=== PATIENT | female | born 1945 | race Caucasian/White ===

== ENCOUNTER 2021-01-01 09:28 | Outpatient (CLI) | payer MEDICARE | END 2021-01-01 09:29 | disposition home or self-care (01) | LOC: MADRAD 09:28 | PROVIDERS: ATTEND Family Medicine | DX: M25.512 Pain in left shoulder (principal) ==

== ENCOUNTER 2021-02-12 15:47 | Emergency (ER) | payer OTHER, MEDICARE ==
[2021-02-12] MEDS ORDERED: Boostrix 0.5 ML (Tdap) VIAL ONE (18:10)
== END 2021-02-12 19:20 | disposition home or self-care (01) ==
LOC: MADERS 15:47
DX: S00.03XA Contusion of scalp, initial encounter (principal); M25.512 Pain in left shoulder; G89.29 Other chronic pain; W01.10XA Fall on same level from slipping, tripping and stumbling with subsequent striking against unspecified object, initial encounter
CPT/HCPCS: 70450; 72125; 90471; 90715

== ENCOUNTER 2021-08-02 18:01 | Emergency (ER) | payer MEDICARE ==
[~2021-08-02 18:01] MED LIST: Sodium Chloride 0.9% 100 ML BAG ONE
[2021-08-02 19:08] LABS: #Basophils 0.1 thou/uL (0.0-0.2); #Eosinphils 0.2 thou/uL (0.0-0.7); #Lymphocytes 1.5 thou/uL (1.20-3.40); #Monocytes 0.8 thou/uL (0.11-0.59); %Basophils 1.1 % (0.0-1.0); %Eosinophils 2.9 % (0.0-10.0); %Monocytes 10.2 % (0.0-10.0); %Neutrophils 65.9 % (42.0-75.0); Hemoglobin 15.2 g/dL (12.0-16.0); Mean Corpuscular HGB CONC 31.3 g/dL (32.0-36.0); Mean Corpuscular Hemoglobin 30.4 pg (27.0-31.0); Mean Corpuscular Volume 97.2 fL (78.0-98.0); Mean Platelet Volume 10.5 fL (7.4-10.4); Platelet Count 228 thou/uL (130-400); RBC Distribution Width 11.8 % (11.5-14.5); Red Blood Cell (RBC) Count 4.99 mill/uL (4.20-5.40); White Blood Cell (WBC) Count 7.6 thou/uL (4.8-10.8)
[2021-08-02 19:12] LABS: INR-International Normal Ratio 0.9; Prothrombin Time 12.1 sec (12.0-14.7)
[2021-08-02 19:22] LABS: ALT (SGPT) 10 U/L (8-55); AST (SGOT) 20 U/L (5-34); Albumin 4.3 g/dL (3.4-4.8); Alkaline Phosphatase 76 U/L (40-110); Anion Gap 16 mmol/L (10-20); BUN (Urea Nitrogen) 13 mg/dL (9.8-20.1); Bilirubin, Total 0.6 mg/dL (0.2-1.2); CK (CPK) 99 U/L (29-168); Calc. Creatinine Clearance 0 mL/min (70-130); Calcium 10.5 mg/dL (7.8-10.44); Carbon Dioxide 27 mmol/L (23-31); Chloride 101 mmol/L (98-107); Globulin 3.3 g/dL (2.4-3.5); Glucose 93 mg/dL (83-110); Potassium 3.4 mmol/L (3.5-5.1); Protein, Total 7.6 g/dL (5.8-8.1); Sodium 141 mmol/L (136-145)
[2021-08-02 19:29] LABS: Bilirubin Negative (Negative); Blood, Urine Small (Negative); Glucose, Urine (Dipstick) Negative (Negative); Ketone, Urine Trace mg/dL (Negative); Leukocyte Small (Negative); Nitrite Negative (Negative); Protein, Urine (Dipstick) Negative (Neg-Trace); Specific Gravity, Urine 1.015 (1.005-1.030)
[2021-08-02 19:34] LABS: Clarity Hazy (Clear)
[2021-08-02 19:35] LABS: RBC/HPF 0-3 HPF (0-3)
[2021-08-02 19:36] LABS: Bacteria/HPF Rare-Few HPF (None Seen); Squamous Epithelial 0-3 HPF (0-3)
[2021-08-02 19:40] LABS: CKMB 1.7 ng/mL (0-6.6)
[2021-08-02] MEDS ORDERED: cefTRIAXone\\ROCEPHIN 1 GM VIAL ONE (20:00)
[2021-08-02] MEDS ORDERED: Aspirin 325 MG TAB ONE (20:00)
[2021-08-02 21:25] LABS: Troponin I 0.015 ng/mL (< 0.028)
== END 2021-08-02 22:01 | disposition home or self-care (01) ==
LOC: MADERS 18:01
DX: N39.0 Urinary tract infection, site not specified (principal); R29.700 NIHSS score 0; R42 Dizziness and giddiness
CPT/HCPCS: 0042T; 70450; 70496; 70498; 80053; 81003; 81015; 82550; 82553; 84484; 85025; 85610; 85730; 93005; 94760; 96374; J0696; J3490

== ENCOUNTER 2021-08-04 14:14 | Outpatient (CLI) | payer MEDICARE | END 2021-08-04 14:15 | disposition home or self-care (01) | LOC: MADLAB 14:14 | PROVIDERS: ATTEND Family Medicine | DX: M17.11 Unilateral primary osteoarthritis, right knee (principal); E83.52 Hypercalcemia | CPT/HCPCS: 36415; 82310; 83970 ==

== ENCOUNTER 2021-08-20 01:58 | Emergency (ER) | payer MEDICARE ==
[2021-08-20 02:41] LABS: #Basophils 0.1 thou/uL (0.0-0.2); #Eosinphils 0.4 thou/uL (0.0-0.7); #Lymphocytes 1.7 thou/uL (1.20-3.40); #Monocytes 0.9 thou/uL (0.11-0.59); #Neutrophils 6.6 thou/uL (1.40-6.50); %Eosinophils 4.2 % (0.0-10.0); %Lymphocytes 17.8 % (21.0-51.0); %Monocytes 9.2 % (0.0-10.0); %Neutrophils 67.8 % (42.0-75.0); Hemoglobin 14.2 g/dL (12.0-16.0); Mean Corpuscular HGB CONC 31.8 g/dL (32.0-36.0); Mean Corpuscular Hemoglobin 30.7 pg (27.0-31.0); Mean Corpuscular Volume 96.4 fL (78.0-98.0); Mean Platelet Volume 10.7 fL (7.4-10.4); Platelet Count 234 thou/uL (130-400); RBC Distribution Width 12.1 % (11.5-14.5); Red Blood Cell (RBC) Count 4.63 mill/uL (4.20-5.40); White Blood Cell (WBC) Count 9.7 thou/uL (4.8-10.8)
[2021-08-20] MEDS ORDERED: ALPRAZolam 0.5 MG TAB ONE ×2 (02:41→02:42)
[2021-08-20 03:07] LABS: ALT (SGPT) 12 U/L (8-55); AST (SGOT) 19 U/L (5-34); Albumin 3.9 g/dL (3.4-4.8); Alkaline Phosphatase 85 U/L (40-110); Anion Gap 12 mmol/L (10-20); BUN (Urea Nitrogen) 18 mg/dL (9.8-20.1); Bilirubin, Total 0.3 mg/dL (0.2-1.2); Calc. Creatinine Clearance 0 mL/min (70-130); Calcium 9.5 mg/dL (7.8-10.44); Carbon Dioxide 28 mmol/L (23-31); Chloride 103 mmol/L (98-107); Globulin 2.4 g/dL (2.4-3.5); Glucose 110 mg/dL (83-110); Potassium 3.4 mmol/L (3.5-5.1); Protein, Total 6.3 g/dL (5.8-8.1); Sodium 140 mmol/L (136-145)
[2021-08-20] MEDS ORDERED: Sodium Chloride 0.9% 1,000 ML ONE (03:49)
[2021-08-20] MEDS ORDERED: Sodium Chloride 0.9% 100 ML BAG ONE (06:07)
[2021-08-20] MEDS ORDERED: Iopamidol 370 76% 125 ML VIAL FS ONE (12:04)
== END 2021-08-20 05:17 | disposition home or self-care (01) ==
LOC: MADERS 01:58
DX: F41.9 Anxiety disorder, unspecified (principal)
CPT/HCPCS: 71046; 71275; 80053; 83880; 84484; 85025; 85379; 93005; J3490; J7050; Q9967

== ENCOUNTER 2021-10-06 09:28 | Outpatient (CLI) | payer MEDICARE | END 2021-10-06 09:29 | disposition home or self-care (01) | LOC: MADLAB 09:28 | PROVIDERS: ATTEND Otolaryngology Plastic Surgery within the Head & Neck | DX: E83.52 Hypercalcemia (principal) | CPT/HCPCS: 36415; 82330; 83970 ==

== ENCOUNTER 2022-02-05 07:51 | Outpatient (CLI) | payer MEDICARE | END 2022-02-05 07:52 | disposition home or self-care (01) | LOC: MADRAD 07:51 | PROVIDERS: ATTEND Otolaryngology Plastic Surgery within the Head & Neck | DX: R05.3 Chronic cough (principal) | CPT/HCPCS: 71046 ==

== ENCOUNTER 2024-04-18 12:39 | Inpatient (IN) | payer MEDICARE ==
[2024-04-18 16:45] VITALS: BMI 25.5
[2024-04-18] MEDS: Montelukast Sodium 10 mg Tablet PO SCH (20:20)
[2024-04-18] MEDS: Nystatin Cream 15 GM TUBE TOP SCH (20:20)
[2024-04-18] MEDS: Lantiseptic Ointment 130 GM JAR TOP PRN (20:23)
[2024-04-18] MEDS: Amitriptyline HCl 25 MG TAB PO SCH (20:31)
[2024-04-19] MEDS: Cholecalciferol 1,000 UNITS (25 MCG) TAB PO SCH (08:39)
[2024-04-19] MEDS ORDERED: Benzonatate 100 MG CAP PO PRN (20:24)
[2024-04-19] MEDS: Acetaminophen 325 MG TAB PO PRN (22:58)
[2024-04-20 08:24] LABS: #Basophils 0.1 thou/uL (0.0-0.2); #Eosinphils 0.3 thou/uL (0.0-0.7); #Lymphocytes 1.9 thou/uL (1.20-3.40); #Monocytes 0.9 thou/uL (0.11-0.59); #Neutrophils 6.1 thou/uL (1.40-6.50); %Basophils 0.7 % (0.0-1.0); %Eosinophils 2.8 % (0.0-10.0); %Lymphocytes 20.9 % (21.0-51.0); %Monocytes 9.4 % (0.0-10.0); %Neutrophils 66.2 % (42.0-75.0); Hematocrit 40.1 % (36.0-47.0); Hemoglobin 12.4 g/dL (12.0-16.0); Mean Corpuscular HGB CONC 30.8 g/dL (32.0-36.0); Mean Corpuscular Hemoglobin 29.7 pg (27.0-31.0); Mean Corpuscular Volume 96.5 fl (78.0-98.0); Mean Platelet Volume 8.5 fL (7.4-10.4); Platelet Count 189 10x3/uL (130-400); RBC Distribution Width 12.3 % (11.5-14.5); Red Blood Cell (RBC) Count 4.16 mill/uL (4.20-5.40); White Blood Cell (WBC) Count 9.2 10x3/uL (4.8-10.8)
[2024-04-20 08:35] LABS: Anion Gap 15 mmol/L (10-20); BUN (Urea Nitrogen) 26 mg/dL (9.8-20.1); Calc. Creatinine Clearance 51 mL/min (70-130); Calcium 8.3 mg/dL (7.8-10.44); Carbon Dioxide 27 mmol/L (23-31); Chloride 102 mmol/L (98-107); Estimated GFR 61; Glucose 82 mg/dL (83-110); Potassium 3.7 mmol/L (3.5-5.1); Sodium 140 mmol/L (136-145)
[2024-04-20] MEDS: Albuterol 200 PUFF (6.7GM INHALER) INH PRN (12:10)
[2024-04-20] MEDS: BREZTRI AEROSPHERE INH SCH (21:04)
[2024-04-23 06:46] LABS: Bilirubin Small (Negative); Blood, Urine Negative (Negative); Glucose, Urine (Dipstick) Negative (Negative); Ketone, Urine Trace mg/dL (Negative); Leukocyte Small (Negative); Nitrite Negative (Negative); Protein, Urine (Dipstick) Negative (Neg-Trace)
[2024-04-23 06:48] LABS: Clarity Slightly Cloudy (Clear); Mucous/LPF 2+ LPF (<2+); RBC/HPF 0-3 HPF (0-3); Squamous Epithelial 0-3 HPF (0-3)
[2024-04-23 06:49] LABS: Calcium Oxalate Crystals 3+ HPF (None Seen)
[2024-04-24] MEDS: Fosfomycin 3 GM/Packet PO SCH (14:30)
[2024-04-24] MEDS: Phenazopyridine HCl 95 MG TAB PO SCH (20:53)
[2024-04-25] MEDS: Famotidine 20 MG TAB PO SCH (20:43)
[2024-04-26 08:41] LABS: Anion Gap 14 mmol/L (10-20); BUN (Urea Nitrogen) 12 mg/dL (9.8-20.1); Calc. Creatinine Clearance 44 mL/min (70-130); Calcium 9.3 mg/dL (7.8-10.44); Carbon Dioxide 26 mmol/L (23-31); Chloride 104 mmol/L (98-107); Estimated GFR 50; Glucose 93 mg/dL (83-110); Potassium 4.1 mmol/L (3.5-5.1); Sodium 140 mmol/L (136-145)
[2024-04-28 12:00] VITALS: BMI 25.3
[2024-04-30] MEDS: Calcium Carbonate 500 MG ChewTAB PO PRN (21:25)
[2024-05-03 07:19] VITALS: BP 129/69; TEMP 97.4
[2024-05-04] MEDS ORDERED: Famotidine 20 MG TAB PO SCH (09:00)
== END 2024-05-03 13:05 | disposition home or self-care (01) | DRG 947 ==
LOC: MADMS 13:10
PROVIDERS: ADMIT Family Medicine; ATTEND Emergency Medicine
DX: R53.81 Other malaise (principal); K85.90 Acute pancreatitis without necrosis or infection, unspecified; E87.1 Hypo-osmolality and hyponatremia; N17.9 Acute kidney failure, unspecified; J45.901 Unspecified asthma with (acute) exacerbation; R13.10 Dysphagia, unspecified; R41.0 Disorientation, unspecified; R30.0 Dysuria; R29.90 Unspecified symptoms and signs involving the nervous system; R29.6 Repeated falls; E87.6 Hypokalemia; E83.51 Hypocalcemia; E03.9 Hypothyroidism, unspecified; K21.9 Gastro-esophageal reflux disease without esophagitis; Z86.73 Personal history of transient ischemic attack (TIA), and cerebral infarction without residual deficits; Z88.0 Allergy status to penicillin; Z79.899 Other long term (current) drug therapy; Z98.890 Other specified postprocedural states; Z87.891 Personal history of nicotine dependence
CPT/HCPCS: 36415; 80048; 81001; 85025; 87086